=== PATIENT | female | born 1960 | race Asian ===

== ENCOUNTER 2023-11-16 18:40 | Emergency (ER) | payer OTHER ==
[~2023-11-16] VITALS: Ht 167.6 cm; Wt 99.8 kg
[2023-11-16 19:08] VITALS: BP_SYST 137; PULSE 75; RESP 18; TEMP 97.8; O2SAT 97
[2023-11-16] MEDS ORDERED: CLIN-142 PO (20:27)
[2023-11-16 20:30] VITALS: PULSE 70
[2023-11-16 21:00] VITALS: BP_SYST 128; RESP 16; TEMP 97.9; O2SAT 99
== END 2023-11-16 20:44 | disposition home or self-care (01) ==
LOC: SED 18:40
DX: L03.116 Cellulitis of left lower limb (principal); E11.9 Type 2 diabetes mellitus without complications; Z88.1 Allergy status to other antibiotic agents
CPT/HCPCS: 93971; 99284